=== PATIENT | female | born 1995 | race Two or more races ===

== ENCOUNTER 2023-03-11 14:04 | Inpatient (IN) | payer MEDICAID ==
[~2023-03-11] VITALS: Ht 161.3 cm; Wt 54.6 kg
[2023-03-11 15:09] LABS: BASOPHILS % (AUTO) 0.3 % (0.0-2.0); EOSINOPHILS % (AUTO) 0.4 % (1.0-6.0); HEMOGLOBIN 13.3 g/dL (12.0-16.0); LYMPHOCYTES # (AUTO) 0.9 K/uL (1.0-4.8); LYMPHOCYTES % (AUTO) 11.6 % (22.0-44.0); MEAN CORPUSCULAR HEMOGLOBIN 33.2 pg (26.0-34.0); MEAN CORPUSCULAR HGB CONC 34.2 G/dL (31.0-37.0); MEAN CORPUSCULAR VOLUME 97 fL (80-100); MONOCYTES # (AUTO) 0.5 K/uL (0.1-1.0); MONOCYTES % (AUTO) 6.7 % (2.0-9.0); NEUTROPHILS # (AUTO) 6.5 K/uL (1.8-7.7); PLATELET COUNT (AUTO) 327 K/uL (150-450); RED BLOOD CELL COUNT(AUTO) 4.02 MIL/uL (4.00-5.20); RED CELL DISTRIBUTION WIDTH 12.2 % (11.5-14.5); WHITE BLOOD COUNT (AUTO) 8.1 K/uL (4.5-11.0)
[2023-03-11] MEDS ORDERED: DiphenhydrAMINE HCL 50 MG/ML VIAL IM ONE (15:15)
[2023-03-11] MEDS ORDERED: LORazepam 2 MG/ML VIAL IM ONE (15:15)
[2023-03-11] MEDS ORDERED: HALOPERIDOL LACTATE 5 MG/ML VIAL IM ONE (15:15)
[2023-03-11 15:18] LABS: ANION GAP 14 mmol/L (8-16); CALCIUM, TOTAL 9.7 mg/dL (8.8-10.5); CARBON DIOXIDE 25 mmol/L (22-29); CHLORIDE 101 mmol/L (98-107); CREATININE 0.91 mg/dL (0.60-1.30); GLOMERULAR FILTR. RATE CALC > 60 mL/min (>60); GLUCOSE,RANDOM 115 mg/dL (70-110); POTASSIUM 3.7 mmol/L (3.5-5.1); SODIUM SERUM 140 mmol/L (136-145); UREA NITROGEN, BLOOD 10 mg/dL (7-18)
[2023-03-11 15:23] LABS: ALANINE AMINOTRANSFERASE 21 U/L (12-78); ALBUMIN 4.7 g/dL (3.4-5.0); ALKALINE PHOSPHATASE 87 U/L (46-116); ASPARTATE AMINOTRANSFERASE 12 U/L (15-37); BILIRUBIN,TOTAL 0.8 mg/dL (0.1-1.0); TOTAL PROTEIN, SERUM 8.3 g/dL (6.4-8.2)
[2023-03-11 15:24] LABS: ALCOHOL, BLOOD (SERUM) < 3 mg/dL (0-10)
[2023-03-11 15:35] LABS: COVID AG,FIA SOURCE NASAL SWAB
[2023-03-11] MEDS ORDERED: ZOLPIDEM TARTRATE 10 MG TABLET PO PRN (16:00)
[2023-03-11 16:18] LABS: SARS-COV2 (COVID) ANTIGEN,FIA Negative (Negative)
[2023-03-11 16:55] LABS: CREATINE KINASE, TOTAL ONLY 73 U/L (26-192)
[2023-03-11 17:59] LABS: SALICYLATE 0.9 mg/dL (2.8-20.0)
[2023-03-11 18:06] LABS: LITHIUM < 0.20 mmol/L (0.60-1.20)
[2023-03-11 21:58] VITALS: BP 122/84; PULSE 100; RESP 18; TEMP 97.7; O2SAT 98
[2023-03-12 08:05] LABS: PH,URINE DRUG SCREEN 5.5 (5.0-8.0)
[2023-03-12 08:11] LABS: ALCOHOL, URINE DRUG SCREEN NEGATIVE (NEGATIVE); AMPHET/METH SCREEN,URINE NEGATIVE (NEGATIVE); BARBITURATE SCREEN, URINE NEGATIVE (NEGATIVE); BENZODIAZEPINES SCREEN,URINE NEGATIVE (NEGATIVE); CANNABINOID SCREEN,URINE POSITIVE (NEGATIVE); COCAINE SCREEN,URINE POSITIVE (NEGATIVE); METHADONE SCREEN, URINE NEGATIVE (NEGATIVE); OPIATE SCREEN,URINE NEGATIVE (NEGATIVE); PHENCYCLIDINE SCREEN,URINE NEGATIVE (NEGATIVE)
[2023-03-12 08:18] VITALS: BP 122/75; PULSE 100; RESP 17; TEMP 97.6; O2SAT 98
[2023-03-12] MEDS: LORazepam 2 MG TABLET PO PRN ×3 (08:27→19:47)
[2023-03-12] MEDS: HALOPERIDOL 5 MG TABLET PO PRN ×2 (08:27→13:46)
[2023-03-12] MEDS ORDERED: LOPERAMIDE HCL 2 MG CAPSULE PO PRN (12:15)
[2023-03-12] MEDS ORDERED: MAG HYDROX/ALUMINUM HYD/SIMETH ES 30 ML SUSPENSION UDCUP PO PRN (12:15)
[2023-03-12] MEDS ORDERED: IBUPROFEN 400 MG TABLET PO PRN (12:15)
[2023-03-12] MEDS ORDERED: MAGNESIUM HYDROXIDE SUSPENSION 30 ML UDCUP PO PRN (12:15)
[2023-03-12] MEDS ORDERED: ACETAMINOPHEN 325 MG TABLET PO PRN (12:15)
[2023-03-12] MEDS ORDERED: CloNIDine HCL 0.1 MG TABLET PO PRN (12:15)
[2023-03-12] MEDS ORDERED: ONDANSETRON HCL 4 MG TABLET PO PRN (12:15)
[2023-03-12] MEDS ORDERED: NICOTINE 14 MG/24 HOUR PATCH TD PRN (12:15)
[2023-03-12] MEDS ORDERED: ALBUTEROL SULFATE HFA 90 MCG/PUFF 8 GM INHALER IH PRN (12:15)
[2023-03-12] MEDS ORDERED: DOCUSATE SODIUM 100 MG CAPSULE PO PRN (12:15)
[2023-03-12] MEDS ORDERED: PETROLATUM,WHITE 28 GM JELLY TP PRN (12:15)
[2023-03-12] MEDS ORDERED: GuaiFENesin/D-METHORPHAN [SUGAR-FREE] 200-20MG/10 ML SYRUP UDCUP PO PRN (12:15)
[2023-03-12] MEDS: MIRTAZAPINE 15 MG TABLET PO SCH (20:03)
[2023-03-12 20:05] VITALS: BP 131/89; PULSE 110; RESP 18; TEMP 98.2; O2SAT 98
[2023-03-13] MEDS: LORazepam 2 MG TABLET PO PRN ×2 (06:09→12:53)
[2023-03-13 08:19] LABS: CHOL/HDL RATIO 3.2 (3.9-5.7); THYROID STIMULATING HORMONE 1.79 uIU/mL (0.36-3.74)
[2023-03-13 08:20] VITALS: BP 125/86; PULSE 100; RESP 18; TEMP 98.2; O2SAT 97
[2023-03-13] MEDS: MIRTAZAPINE 15 MG TABLET PO SCH (20:15)
[2023-03-13 21:14] VITALS: BP 110/83; PULSE 98; RESP 18; TEMP 97.8; O2SAT 99
[2023-03-14] MEDS: LORazepam 2 MG TABLET PO PRN (04:49)
[2023-03-14 08:46] VITALS: BP 106/68; PULSE 100; RESP 16; TEMP 97.6; O2SAT 98
[2023-03-14] MEDS ORDERED: MIRT-89 PO ×2 (13:56→15:57)
== END 2023-03-14 15:30 | disposition home or self-care (01) | DRG 751 ==
LOC: EMS 14:05 → B3A 18:10
PROVIDERS: ADMIT Psychiatry & Neurology Psychiatry; ATTEND Psychiatry & Neurology Psychiatry
PROC: GZHZZZZ Group Psychotherapy (ICD-10-PCS; principal; 2023-03-12)
DX: F33.2 Major depressive disorder, recurrent severe without psychotic features (principal); F29 Unspecified psychosis not due to a substance or known physiological condition; F19.10 Other psychoactive substance abuse, uncomplicated; F41.9 Anxiety disorder, unspecified; J45.909 Unspecified asthma, uncomplicated; R73.9 Hyperglycemia, unspecified; Z20.822 Contact with and (suspected) exposure to COVID-19; G47.00 Insomnia, unspecified; Z88.0 Allergy status to penicillin; Z79.899 Other long term (current) drug therapy
CPT/HCPCS: 80053; 80061; 80178; 80307; 82550; 83036; 84443; 84703; 85025; 99291; G0480; G0481; J1200; J1630; J2060

== ENCOUNTER 2024-03-29 14:34 | Inpatient (IN) | payer MEDICAID, OTHER ==
[~2024-03-29] VITALS: Ht 170.2 cm; Wt 53.5 kg
[~2024-03-29 14:34] MED LIST: DIVA-153 PO; LITH300C3 PO; MIRT-89 PO; RISP-31 PO
[2024-03-29 15:38] LABS: BASOPHILS % (AUTO) 0.3 % (0.0-2.0); EOSINOPHILS % (AUTO) 0.3 % (1.0-6.0); HEMATOCRIT 34.1 % (36-46); HEMOGLOBIN 11.5 g/dL (12.0-16.0); LYMPHOCYTES # (AUTO) 0.7 K/uL (1.0-4.8); LYMPHOCYTES % (AUTO) 8.7 % (22.0-44.0); MEAN CORPUSCULAR HEMOGLOBIN 32.6 pg (26.0-34.0); MEAN CORPUSCULAR HGB CONC 33.8 G/dL (31.0-37.0); MEAN CORPUSCULAR VOLUME 97 fL (80-100); MONOCYTES # (AUTO) 0.4 K/uL (0.1-1.0); MONOCYTES % (AUTO) 4.7 % (2.0-9.0); NEUTROPHILS # (AUTO) 6.6 K/uL (1.8-7.7); PLATELET COUNT (AUTO) 234 K/uL (150-450); RED BLOOD CELL COUNT(AUTO) 3.53 MIL/uL (4.00-5.20); RED CELL DISTRIBUTION WIDTH 12.6 % (11.5-14.5); WHITE BLOOD COUNT (AUTO) 7.7 K/uL (4.5-11.0)
[2024-03-29 15:48] LABS: ANION GAP 13 mmol/L (8-16); CALCIUM, TOTAL 8.5 mg/dL (8.8-10.5); CARBON DIOXIDE 23 mmol/L (22-29); CHLORIDE 104 mmol/L (98-107); CREATININE 0.86 mg/dL (0.60-1.30); GLOMERULAR FILTR. RATE CALC > 60 mL/min (>60); GLUCOSE,RANDOM 107 mg/dL (70-110); POTASSIUM 3.6 mmol/L (3.5-5.1); SODIUM SERUM 140 mmol/L (136-145); UREA NITROGEN, BLOOD 9 mg/dL (7-18)
[2024-03-29 16:08] LABS: ALCOHOL, BLOOD (SERUM) < 3 mg/dL (0-10)
[2024-03-29 16:29] LABS: COVID AG,FIA SOURCE NASAL SWAB
[2024-03-29] MEDS: LORazepam 2 MG TABLET PO PRN (16:36)
[2024-03-29] MEDS: OLANZapine 5 MG RAPDIS TABLET PO PRN (16:40)
[2024-03-29 16:48] LABS: SARS-COV2 (COVID) ANTIGEN,FIA Negative (Negative)
[2024-03-29 22:40] VITALS: O2SAT 96
[2024-03-30 00:14] VITALS: BP 128/68; PULSE 94; RESP 18; TEMP 98; O2SAT 99
[2024-03-30] MEDS ORDERED: LOPERAMIDE HCL 2 MG CAPSULE PO PRN ×2 (07:00→10:00)
[2024-03-30] MEDS ORDERED: MAG HYDROX/ALUMINUM HYD/SIMETH ES 30 ML SUSPENSION UDCUP PO PRN ×2 (07:00→10:00)
[2024-03-30] MEDS ORDERED: OMEPRAZOLE 20 MG CAPSULE PO PRN (07:00)
[2024-03-30] MEDS ORDERED: ONDANSETRON 4 MG TABLET PO PRN (07:00)
[2024-03-30] MEDS ORDERED: BACITRACIN 28 GM OINTMENT TP PRN (07:00)
[2024-03-30] MEDS ORDERED: BENZOCAINE/MENTHOL LOZENGE PO PRN (07:00)
[2024-03-30] MEDS ORDERED: MAGNESIUM HYDROXIDE SUSPENSION 30 ML UDCUP PO PRN ×2 (07:00→10:00)
[2024-03-30] MEDS ORDERED: ACETAMINOPHEN 325 MG TABLET PO PRN ×2 (07:00→10:00)
[2024-03-30] MEDS ORDERED: CloNIDine HCL 0.1 MG TABLET PO PRN (07:00)
[2024-03-30] MEDS ORDERED: DOCUSATE SODIUM 100 MG CAPSULE PO PRN (07:00)
[2024-03-30] MEDS ORDERED: IBUPROFEN 600 MG TABLET PO PRN (07:00)
[2024-03-30] MEDS ORDERED: PETROLATUM,WHITE 28 GM JELLY TP PRN (07:00)
[2024-03-30 07:37] LABS: CHOL/HDL RATIO 2.4 (3.9-5.7)
[2024-03-30 07:39] LABS: HEMOGLOBIN A1C 5.3 % (3.8-5.6)
[2024-03-30] MEDS: PALIPERIDONE PALMITATE 234 MG/1.5 ML SYRINGE IM ONE (10:00)
[2024-03-30] MEDS ORDERED: MELATONIN 5 MG TABLET PO PRN (10:00)
[2024-03-30] MEDS ORDERED: GuaiFENesin/D-METHORPHAN [SUGAR-FREE] 200-20MG/10 ML SYRUP UDCUP PO PRN (10:00)
[2024-03-30] MEDS ORDERED: TUBERCULIN, PURIFIED PROTEIN DERIVATIVE 5 TU/0.1 ML SYRINGE ID ONE (10:00)
[2024-03-30] MEDS ORDERED: PROMETHAZINE HCL 25 MG TABLET PO PRN (10:00)
[2024-03-30] MEDS ORDERED: HydrOXYzine PAMOATE 50 MG CAPSULE PO PRN (10:00)
[2024-03-30 10:06] VITALS: BP 123/70; RESP 18; O2SAT 96
[2024-03-30] MEDS: THIAMINE 100 MG TABLET PO SCH (16:19)
[2024-03-30] MEDS: NICOTINE 21 MG/24 HOUR PATCH TD SCH (17:12)
[2024-03-30] MEDS ORDERED: MIRT-149 PO (17:41)
[2024-03-30] MEDS ORDERED: NALT50TA33 PO (17:41)
[2024-03-30] MEDS: MIRTAZAPINE 30 MG TABLET PO SCH (20:32)
[2024-03-30] MEDS ORDERED: OLANZapine 5 MG RAPDIS TABLET PO SCH (21:00)
[2024-03-30] MEDS: ALBUTEROL SULFATE HFA 90 MCG/PUFF 8 GM INHALER IH PRN (21:23)
[2024-03-30] MEDS: ZOLPIDEM TARTRATE 10 MG TABLET PO PRN (21:26)
[2024-03-30 23:47] VITALS: BP 138/89; PULSE 95; RESP 18; TEMP 98; O2SAT 98
[2024-03-31] MEDS: NALTREXONE HCL 50 MG TABLET PO SCH (08:24)
[2024-03-31] MEDS: FOLIC ACID 1 MG TABLET PO SCH (08:24)
[2024-03-31] MEDS: MULTIVITAMINS WITH MINERALS, THERAPEUTIC TABLET PO SCH (08:24)
[2024-03-31] MEDS: OMEGA-3/DHA/EPA/FISH OIL 1,000 MG CAPSULE PO SCH (08:24)
[2024-03-31] MEDS ORDERED: FLUoxetine HCL 20 MG CAPSULE PO SCH (09:00)
[2024-03-31] MEDS ORDERED: NALTREXONE HCL 50 MG TABLET PO SCH (09:00)
[2024-03-31 10:01] VITALS: BP 123/83; PULSE 110; RESP 19; TEMP 96.8; O2SAT 100
[2024-04-03] MEDS ORDERED: PALIPERIDONE PALMITATE 156 MG/ML SYRINGE IM ONE (09:00)
== END 2024-03-31 17:22 | disposition home or self-care (01) | DRG 750 ==
LOC: EMS 14:34 → 3EI 23:00 → EMS 23:00 → 3EI 23:51
PROVIDERS: ADMIT Psychiatry & Neurology Psychiatry; ATTEND Psychiatry & Neurology Psychiatry
PROC: GZHZZZZ Group Psychotherapy (ICD-10-PCS; principal; 2024-03-30)
PROC: GZ58ZZZ Individual Psychotherapy, Cognitive-Behavioral (ICD-10-PCS; 2024-03-30)
DX: F25.0 Schizoaffective disorder, bipolar type (principal); Z91.148 Patient's other noncompliance with medication regimen for other reason; F10.90 Alcohol use, unspecified, uncomplicated; F12.90 Cannabis use, unspecified, uncomplicated; F17.200 Nicotine dependence, unspecified, uncomplicated; F41.9 Anxiety disorder, unspecified; Z20.822 Contact with and (suspected) exposure to COVID-19; G47.00 Insomnia, unspecified; J45.909 Unspecified asthma, uncomplicated; Z88.0 Allergy status to penicillin; Z88.1 Allergy status to other antibiotic agents; Y90.0 Blood alcohol level of less than 20 mg/100 ml
CPT/HCPCS: 80048; 80061; 83036; 85025; 99285; G0480; J3535

== ENCOUNTER 2024-05-06 15:00 | Emergency (ER) | payer MEDICAID, OTHER ==
[~2024-05-06] VITALS: Ht 160 cm; Wt 56.8 kg
[~2024-05-06 15:00] MED LIST changes: -DIVA-153 PO; -LITH300C3 PO; +MIRT-149 PO; -MIRT-89 PO; +NALT50TA33 PO; -RISP-31 PO
[2024-05-06 15:26] VITALS: TEMP 98.4
[2024-05-06 15:54] LABS: BASOPHILS % (AUTO) 0.1 % (0.0-2.0); EOSINOPHILS % (AUTO) 2.2 % (1.0-6.0); HEMATOCRIT 38.8 % (36-46); HEMOGLOBIN 13.1 g/dL (12.0-16.0); LYMPHOCYTES # (AUTO) 1.3 K/uL (1.0-4.8); LYMPHOCYTES % (AUTO) 11.7 % (22.0-44.0); MEAN CORPUSCULAR HEMOGLOBIN 32.4 pg (26.0-34.0); MEAN CORPUSCULAR HGB CONC 33.8 G/dL (31.0-37.0); MEAN CORPUSCULAR VOLUME 96 fL (80-100); MONOCYTES # (AUTO) 0.5 K/uL (0.1-1.0); MONOCYTES % (AUTO) 4.4 % (2.0-9.0); NEUTROPHILS # (AUTO) 8.7 K/uL (1.8-7.7); NEUTROPHILS % (AUTO) 81.6 % (40.0-70.0); PLATELET COUNT (AUTO) 341 K/uL (150-450); RED BLOOD CELL COUNT(AUTO) 4.04 MIL/uL (4.00-5.20); RED CELL DISTRIBUTION WIDTH 12.2 % (11.5-14.5); WHITE BLOOD COUNT (AUTO) 10.7 K/uL (4.5-11.0)
[2024-05-06 16:01] LABS: ANION GAP 6 mmol/L (8-16); CALCIUM, TOTAL 8.9 mg/dL (8.8-10.5); CARBON DIOXIDE 29 mmol/L (22-29); CHLORIDE 103 mmol/L (98-107); CREATININE 0.75 mg/dL (0.60-1.30); GLOMERULAR FILTR. RATE CALC > 60 mL/min (>60); GLUCOSE,RANDOM 107 mg/dL (70-110); POTASSIUM 3.6 mmol/L (3.5-5.1); SODIUM SERUM 138 mmol/L (136-145); UREA NITROGEN, BLOOD 8 mg/dL (7-18)
[2024-05-06 16:09] LABS: ALANINE AMINOTRANSFERASE 16 U/L (12-78); ALBUMIN 3.6 g/dL (3.4-5.0); ALKALINE PHOSPHATASE 100 U/L (46-116); ASPARTATE AMINOTRANSFERASE 10 U/L (15-37); BILIRUBIN,TOTAL 0.3 mg/dL (0.1-1.0); LIPASE 31 U/L (16-77); TOTAL PROTEIN, SERUM 7.5 g/dL (6.4-8.2)
[2024-05-06 16:18] VITALS: BP 135/76; PULSE 110; RESP 18; O2SAT 97
[2024-05-06 16:20] LABS: APPEARANCE,URINE HAZY (CLEAR); BILIRUBIN,URINE NEGATIVE (NEGATIVE); COLOR,URINE LIGHT ORANGE (YELLOW); GLUCOSE, URINE (UA) NEGATIVE (NEGATIVE); KETONES,URINE NEGATIVE (NEGATIVE); LEUKOCYTE ESTERASE ,URINE TRACE (NEGATIVE); NITRATE,URINE NEGATIVE (NEGATIVE); OCCULT BLOOD,URINE LARGE (NEGATIVE); PROTEIN,URINE TRACE mg/dL (NEGATIVE); SPECIFIC GRAVITIY, URINE 1.021 (1.003-1.030); UROBILINOGEN,URINE <=1.0 mg/dL (<=1.0)
[2024-05-06 16:27] LABS: RBC,URINE >100 /HPF (0-2); WBC,URINE 0-2 /HPF (0-5)
[2024-05-06 16:27] LABS: HCG,QUANTITATIVE < 1 mIU/mL (0-6)
[2024-05-06 16:28] LABS: BACTERIA,URINE Rare /HPF (None Seen); SQUAMOUS EPITHELIAL CELL,UR Few /LPF (None Seen)
== END 2024-05-06 16:40 | disposition left against medical advice (07) ==
LOC: EMS 15:09
DX: R10.11 Right upper quadrant pain (principal); J45.909 Unspecified asthma, uncomplicated; K59.00 Constipation, unspecified; F12.90 Cannabis use, unspecified, uncomplicated; F15.90 Other stimulant use, unspecified, uncomplicated; Z98.51 Tubal ligation status; Z88.0 Allergy status to penicillin
CPT/HCPCS: 80048; 80076; 81001; 83690; 84702; 85025; 99283

== ENCOUNTER 2024-05-09 10:00 | Emergency (ER) | payer OTHER ==
[~2024-05-09] VITALS: Ht 160 cm; Wt 59.1 kg
[2024-05-09 10:24] VITALS: BP 155/86; PULSE 124; RESP 18; TEMP 98.4; O2SAT 98
[2024-05-09] MEDS ORDERED: ALBU18HF12 PO (10:24)
[2024-05-09] MEDS ORDERED: BUDE10.22 IH (14:29)
[2024-05-09] MEDS ORDERED: FAMO20 PO (16:15)
== END 2024-05-09 12:30 | disposition left against medical advice (07) ==
LOC: EMS 10:01
DX: R10.9 Unspecified abdominal pain (principal); Z53.21 Procedure and treatment not carried out due to patient leaving prior to being seen by health care provider

== ENCOUNTER 2024-05-09 13:21 | Emergency (ER) | payer OTHER ==
[~2024-05-09] VITALS: Ht 160 cm; Wt 59.0 kg
[~2024-05-09 13:21] MED LIST changes: +ALBU18HF12 PO
[2024-05-09 13:37] VITALS: TEMP 98
[2024-05-09] MEDS: SODIUM CHLORIDE 0.9% 1,000 ML IV ONE (14:19)
[2024-05-09] MEDS ORDERED: BUDE10.22 IH (14:29)
[2024-05-09] MEDS: FAMOTIDINE 20 MG/2 ML VIAL IVP ONE (14:35)
[2024-05-09 15:37] LABS: BASOPHILS % (AUTO) 0.2 % (0.0-2.0); EOSINOPHILS % (AUTO) 0.5 % (1.0-6.0); HEMATOCRIT 35.5 % (36-46); LYMPHOCYTES # (AUTO) 0.9 K/uL (1.0-4.8); LYMPHOCYTES % (AUTO) 9.2 % (22.0-44.0); MEAN CORPUSCULAR HEMOGLOBIN 32.2 pg (26.0-34.0); MEAN CORPUSCULAR HGB CONC 33.7 G/dL (31.0-37.0); MEAN CORPUSCULAR VOLUME 96 fL (80-100); MONOCYTES # (AUTO) 0.6 K/uL (0.1-1.0); MONOCYTES % (AUTO) 5.4 % (2.0-9.0); NEUTROPHILS # (AUTO) 8.7 K/uL (1.8-7.7); NEUTROPHILS % (AUTO) 84.7 % (40.0-70.0); PLATELET COUNT (AUTO) 300 K/uL (150-450); RED BLOOD CELL COUNT(AUTO) 3.72 MIL/uL (4.00-5.20); WHITE BLOOD COUNT (AUTO) 10.3 K/uL (4.5-11.0)
[2024-05-09 15:44] LABS: APPEARANCE,URINE TURBID (CLEAR); BILIRUBIN,URINE NEGATIVE (NEGATIVE); COLOR,URINE YELLOW (YELLOW); GLUCOSE, URINE (UA) NEGATIVE (NEGATIVE); KETONES,URINE NEGATIVE (NEGATIVE); LEUKOCYTE ESTERASE ,URINE NEGATIVE (NEGATIVE); NITRATE,URINE NEGATIVE (NEGATIVE); PH,URINE 7.5 (5.0-8.0); PROTEIN,URINE 30-70 mg/dL (NEGATIVE); SPECIFIC GRAVITIY, URINE 1.029 (1.003-1.030); UROBILINOGEN,URINE <=1.0 mg/dL (<=1.0)
[2024-05-09 15:48] LABS: ANION GAP 6 mmol/L (8-16); CALCIUM, TOTAL 8.3 mg/dL (8.8-10.5); CARBON DIOXIDE 29 mmol/L (22-29); CHLORIDE 107 mmol/L (98-107); CREATININE 0.65 mg/dL (0.60-1.30); GLOMERULAR FILTR. RATE CALC > 60 mL/min (>60); GLUCOSE,RANDOM 106 mg/dL (70-110); POTASSIUM 3.4 mmol/L (3.5-5.1); SODIUM SERUM 142 mmol/L (136-145); UREA NITROGEN, BLOOD 6 mg/dL (7-18)
[2024-05-09] MEDS: MORPHINE SULFATE 2 MG/ML SYRINGE IVP ONE (15:52)
[2024-05-09 15:56] LABS: OCCULT BLOOD,URINE NEGATIVE (NEGATIVE)
[2024-05-09 15:58] LABS: ALANINE AMINOTRANSFERASE 36 U/L (12-78); ALBUMIN 3.3 g/dL (3.4-5.0); ALKALINE PHOSPHATASE 103 U/L (46-116); ASPARTATE AMINOTRANSFERASE 55 U/L (15-37); BILIRUBIN,TOTAL 0.4 mg/dL (0.1-1.0); HCG,QUANTITATIVE < 1 mIU/mL (0-6); LIPASE 27 U/L (16-77); TOTAL PROTEIN, SERUM 6.6 g/dL (6.4-8.2)
[2024-05-09] MEDS ORDERED: FAMO20 PO (16:15)
[2024-05-09 16:25] VITALS: BP 121/60; PULSE 90; RESP 18; O2SAT 100
== END 2024-05-09 16:27 | disposition home or self-care (01) ==
LOC: EMS 13:41
DX: K80.70 Calculus of gallbladder and bile duct without cholecystitis without obstruction (principal); R10.13 Epigastric pain; J45.909 Unspecified asthma, uncomplicated; F20.9 Schizophrenia, unspecified; K58.9 Irritable bowel syndrome, unspecified; F12.90 Cannabis use, unspecified, uncomplicated; Z88.0 Allergy status to penicillin; Z98.51 Tubal ligation status
CPT/HCPCS: 99285; 96374; 76705; 96361; 96375; 80048; 80076; 81003; 83690; 84702; 85025; 36415; J3490; J2270; J7030